=== PATIENT | male | born 1970 | race African-American/Black ===

== ENCOUNTER 2024-08-27 15:01 | Emergency (ER) | payer OTHER ==
[~2024-08-27 15:01] MED LIST: Iopamidol 300 61% 100 ML VIAL FS ONE
[2024-08-27] MEDS ORDERED: Ondansetron PF 4 MG/2 ML Vial ONE (16:06)
[2024-08-27] MEDS ORDERED: Ketorolac Tromethamine 30 MG (1 mL) VIAL ONE ×2 (16:07→20:43)
[2024-08-27 16:11] LABS: #Basophils 0.05 10x3/uL (0.0-0.2); #Neutrophils 16.07 10x3/uL (1.5-8.4); %Basophils 0.3 % (0.0-2.0); %Eosinophils 1.1 % (0.0-6.0); %Lymphocytes 5.6 % (18.0-47.0); %Monocytes 7.9 % (0.0-10.0); %Neutrophils 84.5 % (40.0-75.0); Hematocrit 37.4 % (38.8-50.0); Hemoglobin 13.1 g/dL (13.5-17.5); Mean Corpuscular Hemoglobin 24.8 pg (27.0-33.0); Mean Corpuscular Volume 70.8 fL (81.2-95.1); RBC Distribution Width 16.6 % (11.5-14.5); Red Blood Cell (RBC) Count 5.28 10x6/uL (4.32-5.72); White Blood Cell (WBC) Count 18.99 10x3/uL (3.5-10.5)
[2024-08-27 16:19] LABS: Platelet Count 153 10x3/uL (150-450)
[2024-08-27 16:25] LABS: Troponin I 0.016 ng/mL (< 0.028)
[2024-08-27 16:28] LABS: Phosphorus 1.9 mg/dL (2.5-4.5)
[2024-08-27 16:30] LABS: ALT (SGPT) 28 U/L (Less than 45); AST (SGOT) 38 U/L (11-34); Albumin 2.9 g/dL (3.1-4.5); Alkaline Phosphatase 68 U/L (40-110); Anion Gap 17 mmol/L (10-20); BUN (Urea Nitrogen) 34 mg/dL (8.4-25.7); Bilirubin, Total 0.8 mg/dL (0.3-1.2); Calc. Creatinine Clearance 0 mL/min (70-130); Calcium 8.2 mg/dL (7.8-10.44); Carbon Dioxide 24 mmol/L (22-29); Chloride 99 mmol/L (98-107); Estimated GFR 51; Globulin 4.6 g/dL (2.4-3.5); Glucose 282 mg/dL (70-105); Lipase 40 U/L (8-78); Magnesium 1.9 mg/dL (1.6-2.6); Potassium 3.8 mmol/L (3.5-5.1); Protein, Total 7.5 g/dL (6.0-8.3); Sodium 136 mmol/L (136-145)
[2024-08-27 16:41] LABS: Actual Bicarbonate (HCO3v) 25.8 mEq/L (22-28); Analyzer IN Cardio CS ER; Base Excess 1.7 mEq/L (-2 - +2); Chloride (VBG) 96 mmol/L (98-106); Hematocrit-VBG 42 % (42.0-52.0); Hemoglobin (Hb) 14.4 g/dL (13.1-17.2); Potassium (VBG) 3.65 mmol/L (3.70-5.30); Puncture Site Other Site; RapidComm Collect By RN; Sodium 134 mmol/L (133-146); pH (venous) 7.438 (7.32-7.43)
[2024-08-27 17:03] LABS: Anisocytosis SLIGHT = 6-15 cells (100X) (0-5/hpf); Large Platelets SLIGHT (None Seen); MDiff Complete? YES; Microcytosis SLIGHT = 6-15 cells (100X) (0-5/hpf); Platelet Adequacy Comment Appears Adequate; Target Cells SLIGHT = 2-5 cells (100X) (0-1/hpf)
[2024-08-27] MEDS ORDERED: Piperacillin/Tazobactam 4.5 GM VIAL ONE (19:38)
[2024-08-27 19:50] LABS: Bilirubin Neg (Negative); Blood, Urine 150 (Negative); Clarity Clear (Clear); Glucose, Urine (Dipstick) >=1000 mg/dL (Negative); Ketone, Urine 15 mg/dL (Negative); Leukocyte Negative (Negative); Nitrite Negative (Negative); Protein, Urine (Dipstick) 100 mg/dl (Neg-Trace); Specific Gravity, Urine 1.015 (1.005-1.030); Urobilinogen Normal mg/dL (Less than 2)
[2024-08-27 20:20] LABS: Bacteria/HPF Rare-Few HPF (None Seen); CAUTI Indications for Culture Dysuria,urgency,freq; RBC/HPF 0-3 HPF (0-3); Squamous Epithelial 0-3 HPF (0-3); WBC/HPF 0-3 HPF (0-3)
[2024-08-27 20:21] LABS: Urine Culture Reflex No No
== END 2024-08-27 23:30 | disposition short-term general hospital (02) ==
LOC: EEVIPCON 15:01 → CSHERS 15:01
DX: N17.9 Acute kidney failure, unspecified (principal); K52.9 Noninfective gastroenteritis and colitis, unspecified; I10 Essential (primary) hypertension; E11.9 Type 2 diabetes mellitus without complications; E78.5 Hyperlipidemia, unspecified; J45.909 Unspecified asthma, uncomplicated; Z79.899 Other long term (current) drug therapy; Z79.4 Long term (current) use of insulin; Z79.82 Long term (current) use of aspirin
CPT/HCPCS: 36415; 36416; 71045; 74177; 80053; 81001; 82010; 82805; 83605; 83690; 83735; 83880; 84100; 84145; 84484; 85025; 87040; 93005; 94760; 96361; 96365; 96366; 96367; 96375; J1885; J2405; J2543; J7030; Q9967